=== PATIENT | female | born 1965 | race Caucasian/White ===

== ENCOUNTER 2017-02-18 13:41 | Outpatient (CLI) | payer BC ==
--- NOTE | 2017-02-18 16:35 | MRI ---
LEFT SHOULDER MRI WITHOUT IV CONTRAST: 02/18/17 HISTORY: 51-year-old female with left shoulder pain with concern for disorder of the left rotator cuff. Multiplanar and multisequence MRI examination of the left shoulder is performed. There are some AC joint arthrosis changes. There is moderate downsloping of the lateral acromion. The re is a moderate amount of fluid within the subacrominal, subdeltoid bursa. There is some heterogeneo us increased signal within the supraspinatus tendon at the insertion but this has more of the appeara nce of tendinopathy. No evidence for complete full thickness or retracted rotator cuff tear. The subs capularis tendon demonstrates some tendinopathy. The biceps tendon appears intact. There is some abno rmal T1 hypointensity and intermittent T2 hyperintensity in the subcoracoid region evidence for synov itis or capsulitis. No acute osteochondral defect or significant abnormal marrow signal. Rotator cuff muscles are within normal limits of signal and volume. There is some abnormal signal associated with the superior labrum extending posteriorly, evidence for a SLAP type tear. IMPRESSION: Downsloping lateral acromion with moderate fluid within the subacrominal and subdeltoid bursa without evidence for a full thickness rotator cuff tear suggesting concern for bursitis. Patchy supraspinatu s tendinopathy. Concern for a SLAP tear. Evidence for synovitis/capsulitis particularly in the subcor acoid region. POS: [facility]
== END 2017-02-18 13:42 | disposition home or self-care (01) ==
LOC: SCSMRI 13:41
PROVIDERS: ATTEND Family Medicine
DX: M67.912 Unspecified disorder of synovium and tendon, left shoulder (principal); M65.812 Other synovitis and tenosynovitis, left shoulder

== ENCOUNTER 2018-01-10 09:52 | Outpatient (CLI) | payer BC ==
--- NOTE | 2018-01-10 13:24 | RAD ---
CHEST 2 VIEWS: Date: 01/10/18 INDICATION: Chest pain with dry cough. COMPARISON: Prior exam dated 02/26/14. FINDINGS: Lungs are clear. Cardiomediastinal silhouette is within normal limits. No acute osseous abnormality i s evident. IMPRESSION: No acute cardiopulmonary abnormality. POS: [facility]
== END 2018-01-10 09:53 | disposition home or self-care (01) ==
LOC: SCSRAD 09:52
PROVIDERS: ATTEND Family Medicine
DX: R07.9 Chest pain, unspecified (principal)
CPT/HCPCS: 36415; 71046; 85379

== ENCOUNTER 2018-08-30 08:19 | Outpatient (CLI) | payer BC ==
--- NOTE | 2018-08-31 10:20 | NM ---
RADIOIODINE THYROID UPTAKE AND SCAN: HISTORY: Abnormal results of thyroid function tests, low TSH of 0.0057 on 08/15/2018. Radiopharmaceutical: 247 uCi I-123 administered orally. FINDINGS: Homogeneous tracer distribution is seen in the thyroid lobes without evidence of focal hot or cold no dule. The 24-hour uptake measures 35% (normal 10-30%). IMPRESSION: Findings are suggestive of hyperthyroid Graves' disease.
== END 2018-08-30 08:20 | disposition home or self-care (01) ==
LOC: NM 08:19
PROVIDERS: ATTEND Physician Assistant Medical
DX: R94.6 Abnormal results of thyroid function studies (principal)
CPT/HCPCS: 78014; A9516

== ENCOUNTER 2019-04-13 10:42 | Outpatient (CLI) | payer BC ==
--- NOTE | 2019-04-13 14:16 | ULT ---
ABDOMINAL ULTRASOUND: HISTORY: Epigastric pain. FINDINGS: The gallbladder has a normal sonographic appearance. No evidence of gallstones. Liver and spleen are unremarkable. The aorta and IVC are unremarkable. Pancreas is mostly obscured. Common bile duct normal caliber. Right kidney appears unremarkable. Images of the left kidney reveal irregular cystic area in the renal pelvis in the mid kidney measurin g 1.0 to 2.0 cm. This may represent a parapelvic cyst, although I cannot exclude mild dilatation of central collecting structures. The left kidney is otherwise unremarkable. IMPRESSION: 1. Question left parapelvic cyst versus mild prominence of the left central collecting structures. If there is unexplained left flank pain or other urinary symptoms, recommend further evaluation with intravenous pyelogram or CT to further evaluate. 2. Abdominal ultrasound otherwise unremarkable. POS: JAMES
== END 2019-04-13 10:43 | disposition home or self-care (01) ==
LOC: SCSULT 10:42
PROVIDERS: ATTEND Internal Medicine Cardiovascular Disease
DX: R10.13 Epigastric pain (principal)
CPT/HCPCS: 93975

== ENCOUNTER 2019-06-12 10:00 | Emergency (ER) | payer BC | END 2019-06-12 10:25 | disposition home or self-care (01) | LOC: ERS 10:00 | DX: K04.7 Periapical abscess without sinus (principal); E05.00 Thyrotoxicosis with diffuse goiter without thyrotoxic crisis or storm; Z79.899 Other long term (current) drug therapy | CPT/HCPCS: 99282 ==

== ENCOUNTER 2019-09-19 11:39 | Outpatient (CLI) | payer BC ==
--- NOTE | 2019-09-19 12:59 | MMO ---
Bilateral MAMMO Bilat Screen [facility]. CLINICAL HISTORY: Patient is 54 years old and is seen for screening. The patient has no family history of breast cancer. The patient has no personal history of cancer. The patient has a history of Excisional Biopsy in 2012 - @ [facility] VIEWS: The views performed were: bilateral craniocaudal with tomosynthesis and bilateral mediolateral oblique with tomosynthesis. FILMS COMPARED: The present examination has been compared to prior imaging studies performed at [facility] on 09/11/2012, and at [facility] on 11/19/2008, 01/05/2010 and 09/10/2011. This study has been interpreted with the assistance of computer-aided detection. MAMMOGRAM FINDINGS: There are scattered fibroglandular densities. There is an asymmetry seen in the MLO view only seen in the central region of the right breast. In the left breast, there are no suspicious masses, calcifications or areas of architectural distortion. IMPRESSION: ASYMMETRY IN THE RIGHT BREAST REQUIRES ADDITIONAL EVALUATION. RECOMMEND DIAGNOSTIC MAMMOGRAM. ULTRASOUND MAY ALSO PROVE USEFUL AT RECALL. THE RESULTS OF THIS EXAM WERE SENT TO THE PATIENT. ACR BI-RADS Category 0 - Incomplete: Need additional imaging evaluation. [facility] will notify the patient of the need for additional imaging services. MAMMOGRAPHY NOTE: 1. A negative mammogram report should not delay a biopsy if a dominant of clinically suspicious mass is present. 2. Approximately 10% to 15% of breast cancers are not detected by mammography. 3. Adenosis and dense breasts may obscure an underlying neoplasm. Reported by: ROLAND PATEL MD Electonically Signed: [id number]
== END 2019-09-19 11:40 | disposition home or self-care (01) ==
LOC: BICMAMMO 11:39
PROVIDERS: ATTEND Family Medicine
DX: Z12.31 Encounter for screening mammogram for malignant neoplasm of breast (principal); N64.89 Other specified disorders of breast; Z91.89 Other specified personal risk factors, not elsewhere classified
CPT/HCPCS: 77063; 77067

== ENCOUNTER 2021-09-29 13:59 | Outpatient (CLI) | payer BC | END 2021-09-29 14:00 | disposition home or self-care (01) | LOC: BICMAMMO 13:59 | PROVIDERS: ATTEND Family Medicine | DX: Z12.31 Encounter for screening mammogram for malignant neoplasm of breast (principal) | CPT/HCPCS: 77063; 77067 ==

== ENCOUNTER 2022-01-14 10:26 | Outpatient (CLI) | payer BC | END 2022-01-14 10:27 | disposition home or self-care (01) | LOC: TBSIIMAG 10:26 | PROVIDERS: ATTEND Family Medicine | DX: M54.40 Lumbago with sciatica, unspecified side (principal); M47.816 Spondylosis without myelopathy or radiculopathy, lumbar region | CPT/HCPCS: 72148 ==

== ENCOUNTER 2022-02-26 12:28 | Outpatient (CLI) | payer BC | END 2022-02-26 12:29 | disposition home or self-care (01) | LOC: TBSIIMAG 12:28 | PROVIDERS: ATTEND Neurological Surgery | DX: M51.36 Other intervertebral disc degeneration, lumbar region (principal); M47.814 Spondylosis without myelopathy or radiculopathy, thoracic region | CPT/HCPCS: 72146 ==

== ENCOUNTER 2022-04-22 09:29 | Outpatient (CLI) | payer BC | END 2022-04-22 09:30 | disposition home or self-care (01) | LOC: SCSRAD 09:29 | PROVIDERS: ATTEND Anesthesiology Pain Medicine | DX: M43.17 Spondylolisthesis, lumbosacral region (principal); M47.816 Spondylosis without myelopathy or radiculopathy, lumbar region; M67.88 Other specified disorders of synovium and tendon, other site | CPT/HCPCS: 72110 ==

== ENCOUNTER 2023-03-16 15:08 | Outpatient (CLI) | payer BC | END 2023-03-16 15:09 | disposition home or self-care (01) | LOC: BICMAMMO 15:08 | PROVIDERS: ATTEND Family Medicine | DX: Z12.31 Encounter for screening mammogram for malignant neoplasm of breast (principal) | CPT/HCPCS: 77063; 77067 ==

== ENCOUNTER 2024-09-12 15:18 | Outpatient (CLI) | payer BC | END 2024-09-12 15:19 | disposition home or self-care (01) | LOC: BICMAMMO 15:18 | PROVIDERS: ATTEND Family Medicine | DX: Z12.31 Encounter for screening mammogram for malignant neoplasm of breast (principal); Z91.89 Other specified personal risk factors, not elsewhere classified | CPT/HCPCS: 77063; 77067 ==